=== PATIENT | female | born 1950 | race Caucasian/White ===

== ENCOUNTER 2019-04-22 01:41 | Emergency (ER) | payer OTHER ==
--- NOTE | 2019-04-22 01:45 | PDOC ---
History of Present Illness - General Chief Complaint: Allergic Reaction Stated Complaint: ALLERGIC REACTION Time Seen by Provider: 04/22/19 01:44 - History of Present Illness Initial Comments: 04/22/19 01:53 This 69-year-old woman with a history of HLD but no other significant medical issues presents with apparent allergic reaction. Patient ate in a restaurant approximately 6 PM last night. While she was eating she felt mild tingling of her tongue but felt well until a few hours later when she noted itching of her hands. No known exposure to new foods during the meal; she denies any new medications/ supplements/vitamins. no previous history of serious allergic reaction. As the evening progressed, the patient began to have sensation of difficulty swallowing. She did not take any [id number] medication prior to arrival in the ER. No recent acute febrile illness. Medications as noted below No known allergies Former smoker Drinks wine daily with meal otherwise no other daily alcohol or recreational drug use Past History - Past Medical History Allergies/Adverse Reactions: Allergies Allergy/AdvReac Type Severity Reaction Status Date / Time No Known Allergies Allergy Verified 08/12/14 09:37 Home Medications: Ambulatory Orders Aspirin [Ecotrin] 81 mg PO DAILY 08/08/14 Rosuvastatin Calcium [Crestor] 10 mg PO HS 08/08/14 EPINEPHrine (EPI-PEN 0.3MG) [Epipen 0.3MG -] 0.3 mg IM ASDIR #2 pens 04/22/19 predniSONE [Deltasone -] 40 mg PO DAILY #4 tablet 04/22/19 Anemia: No Asthma: No Cancer: No Cardiac Disorders: No CVA: No COPD: No CHF: No Dementia: No Diabetes: No GI Disorders: No Disorders: No HTN: No Hypercholesterolemia: Yes Liver Disease: No Seizures: No Thyroid Disease: No - Surgical History Abdominal Surgery: No Appendectomy: No Cardiac Surgery: No Cholecystectomy: No Lung Surgery: No Neurologic Surgery: No Orthopedic Surgery: No - Psycho Social/Smoking Cessation Hx Smoking History: Former smoker Have you smoked in the past 12 months: No Hx Alcohol Use: Yes (DAILY WINE WITH DINNER) Drug/Substance Use Hx: No Substance Use Type: Alcohol Hx Substance Use Treatment: No Review of Systems - Review of Systems Able to Perform ROS?: Yes Comments:: 12 point review of systems is negative except for what is noted in the history of present illness *Physical Exam - Physical Exam GENERAL: Adult female, alert and oriented x3 in no acute distress HEAD: Normal with no signs of trauma. EYES: Marked bilateral periorbital edema; conjunctiva and pupils are normal ENT: Minimal edema of uvula (midline without deviation) NECK: Normal range of motion, supple without lymphadenopathy, JVD, or masses. No stridor LUNGS: Breath sounds equal, clear to auscultation bilaterally. No wheezes, and no crackles. No wheezing HEART:Regular rate and rhythm, normal S1 and S2 without murmur, rub or gallop. ABDOMEN:.normal bowel sounds No guarding,tenderness or rebound.No masses No distention. EXTREMITIES: Normal range of motion, no edema. No clubbing or cyanosis. No erythema, or tenderness. NEUROLOGICAL: Cranial nerves II through XII grossly intact. Normal speech. No focal neurological deficits. MUSCULOSKELETAL: Back non-tender to palpation, no CVA tenderness SKIN: Moderate edema of dorsum and palmar aspects of bilateral hands; bilateral palmar erythema. Fine erythematous maculopapular rash of back Medical Decision Making - Medical Decision Making 69-year-old woman presents with apparent allergic reaction to unknown substance : Symptoms began several hours prior to presentation and more progressively more severe through the evening. patient presented to ER when she began to have sensation of her throat closing. Exam as noted. Solu-Medrol 125 mg IV, Benadryl 50 mg IV and Pepcid 20 mg IV administered 04/22/19 02:59 After above medications given, patient has significant relief of bilateral hand edema/erythema/pruritus but still has sensation of throat closing. Reexamination shows new area of edema below her tongue and no change in edema of her uvula. Epinephrine 0.5mg IM given Patient and her have reviewed ingredients in the dinner that she had prior to onset of symptoms: There was a significant amount of celeriac (celery root) in the meal. Patient recalls no previous exposure to celeriac 04/22/19 05:23 Patient felt significantly better after IM epinephrine, with near resolution of sensation of throat closing. Reexamination revealed marked decrease in uvular edema; sublingual edema also had resolved. Periorbital edema and bilateral hand edema/erythema continued to improve. Patient was discharged with prescriptions for EpiPen and 2-day course of 40 mg of prednisone daily. She should also continue antihistamines as needed for itching/rash. She should return to the emergency room immediately if she has severe symptoms but plan on following up with her doctor in any case in the next 2 to 3 days. She should avoid any celery-based foods or food products until allergy testing is performed. Discharge - Discharge Information Problems reviewed: Yes Clinical Impression/Diagnosis: Allergic reaction Qualifiers: Encounter type: initial encounter Qualified Code(s): T78.40XA - Allergy, unspecified, initial encounter Condition: Stable Disposition: HOME - Additional Discharge Information Prescriptions: EPINEPHrine (EPI-PEN 0.3MG) [Epipen 0.3MG -] 0.3 mg IM ASDIR #2 pens predniSONE [Deltasone -] 40 mg PO DAILY #4 tablet - Follow up/Referral Referrals: Portia Chung [Primary Care Provider] - - Patient Discharge Instructions Patient Printed Discharge Instructions: DI for General Allergic Reactions Additional Instructions: Keep head elevated as much as possible over the next few days; cool compresses to eyes/hands as needed Benadryl/Claritin/Zyrtec as needed for itching Prednisone 40 mg daily for 2 days only, then stop Use EpiPen if you have any sensation of throat closing or difficulty breathing, then return to ER immediately Avoid any foods containing celery or celery products until allergy testing is performed Follow-up with your general doctor within the next 2 to 3 days - Post Discharge Activity
[2019-04-22 01:47] VITALS: BP 139/86; PULSE 88; TEMP 97.6; BMI 23.5
[2019-04-22] MEDS ORDERED: methylPREDNISolone NA SUCC 125 MG/2 ML VIAL IVPB ONE (01:51)
[2019-04-22] MEDS ORDERED: FAMOTIDINE 20 MG/50 ML IVPB 20 MG/50 ML MG IVPB ONE ×2 (01:52→01:54)
[2019-04-22] MEDS ORDERED: methylPREDNISolone NA SUCC 125 MG/2 ML VIAL ONE (01:54)
[2019-04-22] MEDS ORDERED: EPINEPHrine 1:1,000 0.3 MG/0.3 ML SYR IM ONE (03:04)
[2019-04-22] MEDS ORDERED: EPINEPHrine/PF 1 MG/1 ML (1:1,000) AMPULE ONE (03:11)
== END 2019-04-22 05:17 | disposition home or self-care (01) ==
LOC: FER 01:41
PROC: 3E023GC Introduction of Other Therapeutic Substance into Muscle, Percutaneous Approach (ICD-10-PCS; principal; 2019-04-22)
PROC: 3E033GC Introduction of Other Therapeutic Substance into Peripheral Vein, Percutaneous Approach (ICD-10-PCS; 2019-04-22)
DX: T78.40XA Allergy, unspecified, initial encounter (principal); Z87.891 Personal history of nicotine dependence; E78.00 Pure hypercholesterolemia, unspecified
CPT/HCPCS: 99282-25